=== PATIENT | male | born 1985 | race Two or more races ===

== ENCOUNTER 2019-05-22 05:54 | Emergency (ER) | payer MEDICAID, SELFPAY ==
[~2019-05-22] VITALS: Ht 170.2 cm; Wt 70.3 kg
[~2019-05-22 05:54] MED LIST: BACTRIM DS TAB1 EAC1 ORAL; CLINDAMYCIN HC300 MG ORAL; IBUPROFEN600 MG ORAL; NKM; NORCO 5-325 TA1 EACH ORAL
--- NOTE | 2019-05-22 06:06 | NUR ---
ED Nurse Note: pt came to ed c/o left thumb pain x 1 day bruising noted on nail bed
--- NOTE | 2019-05-22 06:39 | Emergency Room Report ---
History of Present Illness General Chief Complaint: Upper Extremity Injury Source: Patient Present Illness HPI Patient presents with 2 days of left thumb pain. Denies any trauma. The swelling and also discoloration of the nail. He denies any trauma. His tetanus is less than 10 years. He denies fever chills. Pain is rated 10/10. Aching and pressure nonradiating. No numbness The patient is right-handed. Allergies: Coded Allergies: No Known Allergies (Unverified , 01/03/14) Patient History Past Medical History: see triage record Past Surgical History: other - pilonidal cyst in past Social History: Reports: smoking; Denies: alcohol use, drug use Social History Narrative unemployed jeweler Reviewed Nursing Documentation: PMH: Agreed; PSxH: Agreed Nursing Documentation-PMH Past Medical History: No Stated History Review of Systems Constitutional: Reports: see HPI Musculoskeletal: Reports: see HPI Skin: Reports: see HPI Neurological: Reports: see HPI Physical Exam Vital Signs Date Time Temp Pulse Resp B/P (MAP) Pulse Ox O2 Delivery O2 Flow Rate FiO2 05/22/19 05:58 98.1 87 22 98 Room Air Sp02 EP Interpretation: reviewed, normal General Appearance: well appearing, no apparent distress, GCS 15 Head: normocephalic Eyes: bilateral eye normal inspection, bilateral eye PERRL ENT: moist mucus membranes Respiratory: normal inspection Cardiovascular #1: regular rate, rhythm Cardiovascular #2: 2+ radial (L) - Good capillary fill Gastrointestinal: normal inspection Musculoskeletal: gait/station normal Neurologic: alert, oriented x3, normal gait, distal neuro normal Psychiatric: anxious Skin: warm/dry, other - Left thumb with pus under nail and swelling Procedures Incision and Drainage Incision and Drainage : Consent: Verbal Site: L thumb I & D Procedure: betadine prep, sterile drapes applied, sterile dressing applied, gauze wick placed Wound Location: upper extremity Wound's Depth, Shape: superficial Wound Explored: contaminated Anesthesia: 1% Lidocaine, other - LET Splint Applied?: No Sling Applied?: No Patient Tolerated: Well Complications: None Progress After Betadine prep and incision was made with scissors under the nail. Pus was expressed. Wedge resection was performed on the nail. The wound was irrigated with saline. Bacitracin and a dressing were applied. Medical Decision Making Diagnostic Impression: Primary Impression: Paronychia ER Course Patient presents with left thumb pain. Exam is consistent with paronychia. Incision and drainage is indicated. Wedge resection also considered. See procedure note Patient stable for outpatient observation and treatment. Last Vital Signs Date Time Temp Pulse Resp B/P (MAP) Pulse Ox O2 Delivery O2 Flow Rate FiO2 05/22/19 06:06 98.1 87 22 98 Room Air Status: improved Disposition: HOME, SELF-CARE Condition: Improved Scripts Ibuprofen* (MOTRIN*) 600 Mg Tablet 600 MG ORAL Q6H PRN for For Pain, #16 TAB 0 Refills Prov: Srinivas Noonan MD 05/22/19 Bacitracin (Bacitracin) 28.4 Gm Oint...g. 1 APPLIC TOPIC BID, #10 GM Prov: Srinivas Noonan MD 05/22/19 Trimethoprim/Sulfamethoxazole 160/800* (BACTRIM DS TABLET*) 1 Each Tablet 1 TAB ORAL Q12H, #14 TAB 0 Refills Prov: Srinivas Noonan MD 05/22/19 Referrals: NON PHYSICIAN (PCP) Srinivas Noonan MD May 22, 2019 06:39
[2019-05-22] MEDS ORDERED: LET 3ml Soln TOPIC ONE (06:45)
[2019-05-22] MEDS ORDERED: Lidocaine 1% MPF 10mg/ml 5ml INJ ONE (06:45)
[2019-05-22] MEDS ORDERED: BACITRACIN15 GM TOPIC (06:58)
[2019-05-22] MEDS ORDERED: BACTRIM DS TAB1 EAC1 ORAL (06:58)
[2019-05-22] MEDS ORDERED: IBUPROFEN600 MG ORAL (06:58)
[2019-05-22] MEDS ORDERED: Bacitracin Oint UD TOPIC ONE (07:00)
[2019-05-22] MEDS ORDERED: Bactrim-DS 1 tab ORAL ONE (07:00)
[2019-05-22 07:12] VITALS: BP 132/87
--- NOTE | 2019-05-22 07:13 | NUR ---
ER DISCHARGE NOTE: Patient is cleared to be discharged per ERMD, pt is aox4, on room air, with stable vital signs. pt was given dc and prescription instructions, pt was able to verbalize understanding, pt id band removed. pt is able to ambulate with steady gait. pt took all belongings.
== END 2019-05-22 07:11 | disposition home or self-care (01) ==
LOC: EMR 06:29
DX: L03.012 Cellulitis of left finger (principal)
CPT/HCPCS: 10060; Z7502; 99283